=== PATIENT | female | born 1960 | race Caucasian/White ===

== ENCOUNTER → 2023-08-19 09:13 | Outpatient (REF) | payer OTHER, SELFPAY | LOC: HWRAD 09:13 | PROVIDERS: ATTENDING PHYSICIAN Nurse Practitioner Family | DX: R03.0 Elevated blood-pressure reading, without diagnosis of hypertension (principal); N28.1 Cyst of kidney, acquired; R10.9 Unspecified abdominal pain | CPT/HCPCS: 76775 ==

== ENCOUNTER → 2023-09-25 06:38 | Day surgery (SDC) | payer OTHER, SELFPAY | LOC: GI 06:38 | PROVIDERS: ATTENDING PHYSICIAN Specialist | DX: R10.13 Epigastric pain (principal); K22.89 Other specified disease of esophagus; K31.89 Other diseases of stomach and duodenum; K29.50 Unspecified chronic gastritis without bleeding; K31.A11 Gastric intestinal metaplasia without dysplasia, involving the antrum | CPT/HCPCS: 43239; 88305; 88342 ==

== ENCOUNTER → 2024-02-12 14:02 | Outpatient (REF) | payer OTHER, SELFPAY | LOC: HWEVLT 14:02 | PROVIDERS: ATTENDING PHYSICIAN Radiology Vascular & Interventional Radiology | DX: I83.891 Varicose veins of right lower extremity with other complications (principal) | CPT/HCPCS: 93971 ==

== ENCOUNTER → 2024-07-29 07:26 | Outpatient (REF) | payer OTHER, SELFPAY | LOC: HWRAD 07:26 | PROVIDERS: ATTENDING PHYSICIAN Family Medicine; FAMILY PHYSICIAN Internal Medicine | DX: R10.84 Generalized abdominal pain (principal); R10.2 Pelvic and perineal pain | CPT/HCPCS: 76700; 76830; 76856 ==

== ENCOUNTER → 2024-09-07 09:15 | Outpatient (REF) | payer OTHER, SELFPAY | LOC: HWWDC 09:15 | PROVIDERS: ATTENDING PHYSICIAN Obstetrics & Gynecology Gynecology; FAMILY PHYSICIAN Internal Medicine | DX: Z12.31 Encounter for screening mammogram for malignant neoplasm of breast (principal) | CPT/HCPCS: 77063; 77067 ==

== ENCOUNTER → 2024-10-21 07:52 | Outpatient (REF) | payer OTHER, SELFPAY | LOC: HWRAD 07:52 | PROVIDERS: ATTENDING PHYSICIAN Internal Medicine | DX: R51.9 Headache, unspecified (principal); R42 Dizziness and giddiness | CPT/HCPCS: 70450 ==

== ENCOUNTER → 2024-11-19 10:58 | Outpatient (REF) | payer OTHER, SELFPAY | LOC: RAD 10:58 | PROVIDERS: ATTENDING PHYSICIAN Internal Medicine | DX: Z13.820 Encounter for screening for osteoporosis (principal) | CPT/HCPCS: 77080 ==

== ENCOUNTER → 2025-01-06 13:22 | Outpatient (REF) | payer OTHER, SELFPAY | LOC: PAVMRI 13:22 | PROVIDERS: ATTENDING PHYSICIAN Internal Medicine | DX: R90.89 Other abnormal findings on diagnostic imaging of central nervous system (principal) | CPT/HCPCS: 70553; A9575 ==

== ENCOUNTER 2025-01-13 08:21 | Emergency (ER) | payer MEDICARE, OTHER, SELFPAY ==
[2025-01-13 08:36] VITALS: BP 140/82
--- NOTE | 2025-01-13 09:33 | ED.GENMED ---
History of Present Illness
General
Chief Complaint: Allergic Reaction
Source: patient and family
Time Seen by Provider: 01/13/25 09:18
History of Present Illness
History of Present Illness:
65-year-old female presents to the emergency room complaining of facial flushing and redness. She has a burning itching sensation to her face. Patient began having the symptoms at 2 AM. Patient also complaining of pain in her right flank. This
been present for couple days. Seems worse with movement. Patient denies any systemic rash. She denies any pain with swallowing. Patient was recently treated for urinary tract infection with an antibiotic. This was a couple weeks ago. She does
not know the name of the antibiotic.
Past History
Past History
ED Past Medical History: Hypercholesterolemia
ED Past Surgical History: None
Social History
Tobacco: Non-smoker
Alcohol: None
Drug: None
Phy Exam
Physical Exam
Physical Exam:
General: Awake, Alert, Oriented X3. No acute distress.
Vitals: unremarkable
Head: Atraumatic
Eyes: Pupils equal, EOMI
Throat: Airway intact, no exudates, normal mucosa
Neck: Trachea midline
Lungs: Clear and equal b/l
Heart: Regular rate, no murmurs
Abd: Soft, Nontender, No pulsatile mass
Neuro: Nonfocal
Skin: Warm, dry, facial flushing, no discrete hives or lesions.
Extremities: pulses equal b/l, no edema
Course
Orders/Labs/Results
Orders:
Orders
01/13/25 09:30
Diphenhydramine [Benadryl] 25 mg PO NOW STA
01/13/25 10:18
Urinalysis Reflex To Culture Urgent
Date Specimen was Collected: 01/13/25
Time Specimen was Collected: 10:16
Urine Microscopic Reflex Cult Urgent
Abnormal Lab Results
01/13/25
10:18
Ur Occult Blood Reflex 2+ A
(Negative)
Urine RBC 3-6 A /HPF
(0-2)
Vital Signs
Initial and Last Documented VS:
Initial Vital Signs
Temp Pulse Resp BP Pulse Ox
98.1 F 79 18 140/82 98
01/13/25 08:36 01/13/25 08:36 01/13/25 08:36 01/13/25 08:36 01/13/25 08:36
Last Documented Vital Signs
Temp Pulse Resp BP Pulse Ox
97.6 F 70 18 126/82 98
01/13/25 11:10 01/13/25 11:10 01/13/25 11:10 01/13/25 11:10 01/13/25 11:10
MDM/Problems Addressed
Differential Diagnosis Includes:
contact dermatitis, medication related flushing, viral illness, allergic rx
MDM/Problems Addressed:
Patient presents with facial redness and some swelling. Airway not involved. Does not sound like there is any new medications or cosmetics. She did take a course of an antibiotic 2 weeks ago. Seems like a long time for her to just develop
symptoms now. Patient certainly stable here. Unclear what the source of her facial redness is. Recommend Benadryl. Follow-up with primary
*Pulse Oximetry
SaO2: 98
Oxygen Mode of Delivery: Room air
Patient hypoxic: no
*Critical Care Note
Total Time (30-74mins, 75-104mins- exclusive of procedures): Not Applicable
ED Attending Note
-
Portions of this chart may have been created with voice recognition software.� Occasional wrong word or��sound alike� substitutions may have occurred due to the inherent limitations of voice recognition software.
Discharge Plan
Departure
Patient Disposition: Home (Routine Discharge)
Date of Disposition: 01/13/25
Time of Disposition: 10:54
Patient with high blood pressure during this ER visit?: No
Condition: Good
Discharge Problem:
Facial flushing
Instructions: Contact dermatitis
Referrals:
Tommy Baum DO [Family Provider, Internal Medicine]
Activity Restrictions/Additional Instructions:
Return to the emergency room if you develop sores or inflammation of your mucous membranes. Also watch for the development of any infection type symptoms.
Interventions
Interventions:
*Risk Screen - Suicide Last Done: 01/13/25 08:36
*General Assessment Last Done: 01/13/25 10:13
*Neglect/Abuse Screening Last Done: 01/13/25 08:36
*ED- Fall Risk Assessment Last Done: 01/13/25 10:13
*ED COVID-19 Vaccine History Last Done: 01/13/25 10:13
*ED Influenza Vaccine History Last Done: 01/13/25 10:13
*Nursing Disposition Last Done: 01/13/25 11:10
ED- Cardiac Assessment Last Done: 01/13/25 10:13
ED- Pulmonary Assessment Last Done: 01/13/25 10:13
ED-Skin Assessment Last Done: 01/13/25 10:13
Discharge Date and Time
Discharge Date/Time: 01/13/25 11:11
Print Language: CROATIAN
[2025-01-13] MEDS: BENADRYL 25 MG PO (10:15)
[2025-01-13 10:41] LABS: Urine Character Clear (Clear)
[2025-01-13 11:04] LABS: Urine White Cell 0-2 /HPF (0-5)
--- NOTE | 2025-01-13 11:09 | EDRN ---
Reviewed discharge instructions with patient and her daughter. Verbalized understanding. Ambulated with steady gait to the lobby.
[2025-01-13 11:10] VITALS: BP 126/82
== END 2025-01-13 11:11 | disposition home or self-care (01) ==
LOC: EMR 08:21
PROVIDERS: EMERGENCY PHYSICIAN Emergency Medicine; FAMILY PHYSICIAN Internal Medicine
DX: R23.2 Flushing (principal); E78.00 Pure hypercholesterolemia, unspecified
CPT/HCPCS: 99283; 81003; 81015